=== PATIENT | female | born 1990 | race Caucasian/White ===

== ENCOUNTER 2021-08-06 05:29 | Emergency (ER) | payer OTHER ==
[~2021-08-06 05:29] MED LIST: FLEXERIL 10 MG10 MG PO; NAPROSYN EC 50500 MG PO; PREDNISONE 50 M50 MG PO
[2021-08-06 10:09] LABS: HEMOGLOBIN 13.8 gm/dl (12.3-15.3); RED BLOOD COUNT 4.53 M/UL (4.00-5.10); WHITE BLOOD COUNT 7.8 K/UL (4.5-11.0)
[2021-08-06 10:36] LABS: BUN/CREATININE RATIO 18 (0-10)
== END 2021-08-06 11:27 | disposition home or self-care (01) ==
LOC: ER1 05:29
PROVIDERS: Emergency Medicine
DX: U07.1 COVID-19 (principal)
CPT/HCPCS: 0240U; 80053; 82550; 82553; 83874; 84484; 85025; 85379; 99283

== ENCOUNTER → 2022-03-26 | Outpatient (CLI) | payer OTHER | LOC: EMI 03-15 15:15 → MRI 03-21 09:00 | DX: G44.209 Tension-type headache, unspecified, not intractable (principal) | CPT/HCPCS: 70544; 70553; A9577 ==